=== PATIENT | female | born 1940 | race Caucasian/White ===

== ENCOUNTER → 2016-10-24 | Outpatient (CLI) | payer MEDICARE ==
--- NOTE | ~2016-10-24 | US77 ---
[facility] A Service of [facility] & [facility] RADIOLOGY TEXT RESULTS PATIENT: SONJA WELSH LOCATION: [facility] : 44 UNIT #: [id number] AGE: [address]: Kelsey Solorio MD SEX: F ORDER DR: [id number] [address] [address] [id number] O MR#: [id number] Acc #: [id number] NAME: SONJA WELSH : 1940 SEX: F STUDY DATE/TIME: 10/24/2016 8:10 UNIT: [facility] ROOM: STUDY DESCRIPTION: US Kidney Bilateral Complete Attending Physician: Kelsey Solorio M.D. Referring Physician: Kelsey Solorio M.D. Ordering Physician: Kelsey Solorio M.D. Primary Care Physician: Kelsey Solorio M.D. MEDICAL IMAGING REPORT This report is preliminary unless electronic signature is present. EXAM Renal ultrasound. INDICATION Chronic kidney disease stage III. This is per the patient's blood work done a week ago. TECHNIQUE Msaterson-scale and color Doppler sonographic images were obtained through the kidneys and bladder. FINDINGS Right kidney contains an echogenic focus measuring about 5 x 5 x 6 mm in size. Exact etiology is uncertain, potentially it could reflect a stone, although it does not appear to be associated with any shadowing. Certainly, there is no hydronephrosis. I am not completely convinced it was not present on the prior study of 2011. Right kidney is otherwise normal. There is no hydronephrosis. Left kidney is also normal in appearance with no solid or cystic renal masses seen and no hydronephrosis identified. Patient's urinary bladder appears unremarkable, although the patient does have a postvoid residual of 71 mL. IMPRESSION 1. 5-6 mm echogenic focus identified within the right kidney. Potentially, it could reflect a stone although it is not associated with any shadowing. Question if perhaps it was present on the patient's prior ultrasound from June 2012. No hydronephrosis is seen. 2. Postvoid residual of 71 mL. [facility] A Service of [facility] & [facility] RADIOLOGY TEXT RESULTS PATIENT: SONJA WELSH LOCATION: [facility] : 44 UNIT #: [id number] AGE: [address]: Kelsey Solorio MD SEX: F ORDER DR: Dictated by... Raina Rivero M.D. THIS IS AN ELECTRONICALLY VERIFIED REPORT Raina Rivero M.D. at 10/24/2016 4:38 PM AFF/tmw TD: 10/24/2016 13:34 JOB #: [id number] MEDICAL IMAGING REPORT Page 1 of 1
== END | disposition home or self-care (01) ==
LOC: SGUS 07:48
DX: N18.3 Chronic kidney disease, stage 3 (moderate) (principal)
CPT/HCPCS: 76775